=== PATIENT | female | born 1995 | race Caucasian/White ===

== ENCOUNTER 2018-01-02 19:12 | Emergency (ER) | payer MEDICAID ==
[2018-01-02 19:12] VITALS: BMI 32.5
--- NOTE | 2018-01-02 20:17 | ED PDOC ---
HPI: Female Pain Time Seen by Provider: 01/02/18 19:33 Chief Complaint (Nursing): Female Genitourinary Chief Complaint (Provider): Female Genitourinary History Per: Patient History/Exam Limitations: no limitations Onset/Duration Of Symptoms: Days Current Symptoms Are (Timing): Still Present Quality Of Discomfort: Burning Associated Symptoms: Urinary Symptoms Additional Complaint(s): 22 year old female presents to the ED complaining of vaginal itching. States these symptoms started one week ago. Reports of a thick yellowish discharge and frequent urination. PMD: Non [facility] Provider Past Medical History Reviewed: Historical Data, Nursing Documentation, Vital Signs Vital Signs: Last Vital Signs Temp 98.4 F 01/02/18 19:29 Pulse 62 01/02/18 19:29 Resp 14 01/02/18 19:29 BP 113/77 01/02/18 19:29 Pulse Ox 100 01/02/18 19:29 - Medical History PMH: No Chronic Diseases - Family History Family History: States: Unknown Family Hx - Immunization History Hx Tetanus Toxoid Vaccination: No Hx Influenza Vaccination: Yes Hx Pneumococcal Vaccination: No - Home Medications Home Medications: Ambulatory Orders Medication Instructions Recorded Ibuprofen [Motrin] 400 mg PO PRN PRN 07/24/13 Ibuprofen [Motrin] 600 mg PO Q6 #20 tab 07/24/13 Nitrofurantoin Macrocrystals 100 mg PO BID #10 cap 05/06/14 [Macrobid] Nitrofurantoin Macrocrystals 100 mg PO BID #14 cap 09/22/16 [Macrobid] Phenazopyridine HCl [Pyridium] 100 mg PO TID #6 tablet 09/22/16 Metronidazole 1 tab PO BID #14 tablet 01/02/18 - Allergies Allergies/Adverse Reactions: Allergies Allergy/AdvReac Type Severity Reaction Status Date / Time No Known Allergies Allergy Unverified 07/24/13 14:52 Review of Systems ROS Statement: Except As Marked, All Systems Reviewed And Found Negative Genitourinary Female: Positive for: Frequency, Vaginal Discharge (yellow) Physical Exam - Reviewed Nursing Documentation Reviewed: Yes Vital Signs Reviewed: Yes - Physical Exam Appears: Positive for: Well, Non-toxic, No Acute Distress Head Exam: Positive for: ATRAUMATIC, NORMAL INSPECTION, NORMOCEPHALIC Skin: Positive for: Normal Color, Warm, Dry Cardiovascular/Chest: Positive for: Regular Rate, Rhythm. Negative for: Murmur Respiratory: Positive for: Normal Breath Sounds. Negative for: Decreased Breath Sounds, Accessory Muscle Use, Respiratory Distress Neurologic/Psych: Positive for: Alert, Oriented (x3). Negative for: Motor/ Sensory Deficits - ECG O2 Sat by Pulse Oximetry: 100 (RA) Pulse Ox Interpretation: Normal Medical Decision Making Medical Decision Making: Time: 2002 Initial impression: yeast infection Initial plan: --BV/Vaginitis PNL DNA PRB --C.Trachomatis RNA, TMA --Urine C&S --Urinalysis Scribe Attestation: Documented by Rosalinda Navarro, acting as a scribe for Virgilio Reich PA-C. Provider Scribe Attestation: All medical record entries made by the Scribe were at my direction and personally dictated by me. I have reviewed the chart and agree that the record accurately reflects my personal performance of the history, physical exam, medical decision making, and the department course for this patient. I have also personally directed, reviewed, and agree with the discharge instructions and disposition. Disposition - Clinical Impression Clinical Impression: Kayleigh vaginitis, Urinary tract infection - Patient ED Disposition Is Patient to be Admitted: No Doctor Will See Patient In The: Office Counseled Patient/Family Regarding: Diagnosis, Need For Followup, Rx Given - Disposition [facility] Disposition: Routine/Home Disposition Time: 20:33 Condition: STABLE Prescriptions: Metronidazole 1 tab PO BID #14 tablet Instructions: Vulvovaginal Yeast Infection, Vaginal Yeast Infection (DC), Yeast Infection (DC) Forms: [employer] ([place])
[2018-01-02 20:22] LABS: SQUAMOUS EPITHIAL < 1 /hpf (0-5); URINE BILIRUBIN NEGATIVE (NEGATIVE); URINE BLOOD NEGATIVE (NEGATIVE); URINE CLARITY CLEAR (Clear); URINE COLOR STRAW (YELLOW); URINE GLUCOSE (UA) NEG (Normal); URINE LEUKOCYTE ESTERASE SMALL Leu/uL (Negative); URINE PROTEIN NEGATIVE (NEGATIVE); URINE UROBILINOGEN 0.2-1.0 mg/dL (0.2-1.0)
[2018-01-02 21:59] VITALS: BP 120/78; PULSE 76; RESP 18; TEMP 98; O2SAT 99
== END 2018-01-02 21:58 | disposition home or self-care (01) ==
LOC: H.ER 19:12
DX: B37.3 Candidiasis of vulva and vagina (principal); N39.0 Urinary tract infection, site not specified